=== PATIENT | female | born 1960 | race Caucasian/White ===

== ENCOUNTER 2019-04-28 19:37 | Emergency (ER) | payer OTHER ==
[~2019-04-28] VITALS: Ht 154.9 cm; Wt 127.0 kg
[~2019-04-28 19:37] MED LIST: [UNRECOGNIZED DRUG - OTHER]
[2019-04-28 20:15] VITALS: BP 139/79
--- NOTE | 2019-04-28 20:20 | NUR ---
TO BED @ 12 AMBULATORY
--- NOTE | 2019-04-28 20:30 | NUR ---
58 YO F BIB SELF AND PRESENTS TO ED C/O HEADACHE AND ABD PAIN S/P DRINKING [employer] FROM [email or web address] AT 1600. WENT TO URGENT CARE; INSTRUCTED TO COME TO ED WITH REFERRAL LETTER THAT STATES PT SWALLOWED PLASTIC FRAGMENT. -- PT AWAKE, ALERT, CALM, COOPERATIVE. ANSWERS QUESTIONS APPROPRIATELY. BEHAVIOR AGE APPROPRIATE. -- SKIN PINK, WARM, DRY. BREATHING EVEN, UNLABORED. PT DENIES DIFFICULTY BREATHING OR SWALLOWING. PMH-- DENIES
[2019-04-28] MEDS ORDERED: KETOROLAC 60 MG/2 ML VIAL IM ONE (20:50)
[2019-04-28 21:30] VITALS: BP 127/80
== END 2019-04-28 21:30 | disposition home or self-care (01) ==
LOC: MED 19:37
DX: T18.9XXA Foreign body of alimentary tract, part unspecified, initial encounter (principal); J02.9 Acute pharyngitis, unspecified; R51 Headache; I10 Essential (primary) hypertension; Z98.890 Other specified postprocedural states; Z79.899 Other long term (current) drug therapy; X58.XXXA Exposure to other specified factors, initial encounter; Y93.89 Activity, other specified; Y92.89 Other specified places as the place of occurrence of the external cause; Y99.8 Other external cause status
CPT/HCPCS: 96372; 99283; J1885